=== PATIENT | female | born 1980 | race Hispanic/Latino ===

== ENCOUNTER 2021-12-26 09:50 | Inpatient (IN) | payer BC, MEDICAID ==
[2021-12-26] MEDS ORDERED: hydrALAZINE 20 MG/ML VIAL SLOW IVP PRN ×2 (10:28→15:56)
[2021-12-26] MEDS ORDERED: Ondansetron PF 4 MG/2 ML Vial IVP PRN ×3 (10:28→15:56)
[2021-12-26] MEDS ORDERED: Bicitra 30 ML UDCUP PO PRN (10:28)
[2021-12-26] MEDS ORDERED: Famotidine/PF 20 mg/2ml Vial SLOW IVP PRN (10:28)
[2021-12-26] MEDS ORDERED: Promethazine HCl 25 MG/ML VIAL IM PRN ×2 (10:28→13:51)
[2021-12-26] MEDS ORDERED: ceFAZolin 2 GM/Dextrose 50 ML 2 GM in Premix Bag 1 BAG IVPB SCH (10:30)
[2021-12-26] MEDS ORDERED: Lactated Ringer's 1,000 ML IV SCH (10:30)
[2021-12-26 10:40] VITALS: BMI 33.9
[2021-12-26] MEDS ORDERED: Morphine PF 10 MG/10 ML VIAL ONE (12:05)
[2021-12-26] MEDS ORDERED: Oxytocin 10 UNITS/ML VIAL ONE ×2 (12:06→13:31)
[2021-12-26] MEDS ORDERED: Ondansetron PF 4 MG/2 ML Vial ONE (12:06)
[2021-12-26] MEDS ORDERED: Ketorolac Tromethamine 30 MG/ML VIAL ONE (12:06)
[2021-12-26] MEDS ORDERED: Dexamethasone 4 mg/ml Vial ONE (12:06)
[2021-12-26] MEDS ORDERED: Phenylephrine 40 MG/NS 250 ML 500 ML ONE (12:06)
[2021-12-26] MEDS ORDERED: Metoclopramide HCl 10 MG/2 ML VIAL ONE (12:06)
[2021-12-26] MEDS ORDERED: Promethazine HCl 25 MG SUPP PR PRN (13:51)
[2021-12-26] MEDS ORDERED: Ondansetron HCl/PF 4 MG/2 ML Vial IVP PRN (13:51)
[2021-12-26] MEDS ORDERED: Naloxone HCl 0.4 mg/ml Vial IV PRN (13:51)
[2021-12-26] MEDS ORDERED: Meperidine HCl/PF 25 MG/ML VIAL SLOW IVP PRN (13:51)
[2021-12-26] MEDS ORDERED: Fentanyl 100 MCG/2 ML VIAL SLOW IVP PRN (13:51)
[2021-12-26] MEDS ORDERED: Hydrocerin (Eucerin) Cream 120 gm Jar TOP PRN (13:51)
[2021-12-26] MEDS ORDERED: diphenhydrAMINE 50 MG/ML VIAL IVP PRN (13:51)
[2021-12-26] MEDS ORDERED: Naloxone HCl 0.4 mg/ml Vial IVP PRN ×2 (13:51)
[2021-12-26] MEDS ORDERED: Ketorolac Tromethamine 30 MG/ML VIAL IVP SCH (14:00)
[2021-12-26] MEDS ORDERED: Communication Order-Pharmacy FS SCH (14:00)
[2021-12-26] MEDS ORDERED: Acetaminophen 325 MG TAB PO PRN (15:56)
[2021-12-26] MEDS ORDERED: diphenhydrAMINE 25 MG CAP PO PRN (15:56)
[2021-12-26] MEDS ORDERED: Boostrix 0.5 ML (Tdap) VIAL IM ONE (15:56)
[2021-12-26] MEDS ORDERED: Lanolin Ointment 7 GM TUBE TOP PRN (15:56)
[2021-12-26] MEDS ORDERED: Measles/Mumps/Rubella 10 MCG/0.5 ML VIAL SC ONE (15:56)
[2021-12-26] MEDS ORDERED: Varicella virus, LIVE 0.5 ML VIAL SC ONE (15:56)
[2021-12-26] MEDS: Lactated Ringer's 1,000 ML IV SCH ×2 (18:33→21:14)
[2021-12-26] MEDS: Ketorolac Tromethamine 30 MG/ML VIAL IVP PRN (18:46)
[2021-12-26] MEDS: Docusate 100 MG CAP PO SCH (21:14)
[2021-12-27] MEDS: Ketorolac Tromethamine 30 MG/ML VIAL IVP PRN ×2 (00:47→06:32)
[2021-12-27 04:09] LABS: Hemoglobin 9.2 g/dL (12.0-15.5); Mean Corpuscular HGB CONC 32.6 g/dL (32.0-36.0); Mean Corpuscular Hemoglobin 27.7 pg (27.0-33.0); Mean Corpuscular Volume 84.9 fl (81.6-98.3); Mean Platelet Volume 10.9 fl (7.4-10.4); Platelet Count 194 10x3/uL (150-450); RBC Distribution Width 13.5 % (11.5-14.5); Red Blood Cell (RBC) Count 3.32 10x6/uL (3.90-5.03); White Blood Cell (WBC) Count 14.7 10x3/uL (3.5-10.5)
[2021-12-27] MEDS: Lactated Ringer's 1,000 ML IV SCH ×3 (08:44→21:55)
[2021-12-27] MEDS: Docusate 100 MG CAP PO SCH ×2 (08:47→21:04)
[2021-12-27] MEDS: HYDROcodone/Acetaminophen 5/325 mg Tablet PO PRN ×4 (08:47→23:42)
[2021-12-27] MEDS: Prenatal Vitamin 1 TAB PO SCH (08:48)
[2021-12-27] MEDS: Ibuprofen 800 MG TAB PO SCH ×2 (16:51→21:04)
[2021-12-27] MEDS ORDERED: Zolpidem Tartrate 5 MG TAB PO PRN (21:00)
[2021-12-28] MEDS: Ibuprofen 800 MG TAB PO SCH ×2 (05:08→13:32)
[2021-12-28] MEDS: HYDROcodone/Acetaminophen 5/325 mg Tablet PO PRN ×4 (05:10→18:03)
[2021-12-28] MEDS: Lactated Ringer's 1,000 ML IV SCH ×2 (07:16→15:30)
[2021-12-28] MEDS: Docusate 100 MG CAP PO SCH (08:22)
[2021-12-28] MEDS: Prenatal Vitamin 1 TAB PO SCH (08:22)
[2021-12-28 11:57] VITALS: BP 130/76
[2021-12-28 15:20] VITALS: TEMP 98.3
== END 2021-12-28 19:20 | disposition home or self-care (01) | DRG 788 ==
LOC: CSHLD 09:50 → CSHPP 15:30
PROVIDERS: ADMIT Obstetrics & Gynecology; ATTEND Obstetrics & Gynecology
PROC: 10D00Z1 Extraction of Products of Conception, Low, Open Approach (ICD-10-PCS; principal; 2021-12-26)
DX: O32.8XX0 Maternal care for other malpresentation of fetus, not applicable or unspecified (principal); Z3A.39 39 weeks gestation of pregnancy; Z37.0 Single live birth
CPT/HCPCS: 0241U; 36415; 51702; 85027; 86780; 86850; 86900; 86901; 87340; 87389; J0690; J1100; J1885; J2274; J2405; J2590; J2765; J7120